=== PATIENT | male | born 1990 | race African-American/Black ===

== ENCOUNTER 2017-03-24 05:29 | Day surgery (SDC) | payer BC ==
[~2017-03-24] VITALS: Ht 162.6 cm; Wt 58.1 kg
[2017-03-24] MEDS: LACTATED RINGERS 1,000 ML IV SCH ×2 (06:22→06:44)
[2017-03-24 06:40] LABS: BASOPHILS % 0.9 % (0.0-2.0); HEMATOCRIT. 40.6 % (42.0-52.0); HEMOGLOBIN. 14.1 g/dL (14.0-18.0); LYMPHOCYTES % 33.6 % (20.0-50.0); MEAN CORPUSCULAR HEMOGLOBIN 31.7 pg (28.0-32.0); MEAN CORPUSCULAR HGB CONC 34.6 g/dL (31.0-37.0); MEAN CORPUSCULAR VOLUME 91.5 fL (80.0-94.0); MEAN PLATELET VOLUME 9.3 fl (7.4-10.4); MONOCYTES % 9.9 % (2.0-8.0); NEUTROPHILS % 51.6 % (40.0-76.0); PLATELET 167 x1000/uL (130-400); RED BLOOD CELL COUNT 4.43 mill/uL (4.7-6.1); RED CELL DISTRIBUTION WIDTH 14.2 % (11.6-14.6); WHITE BLOOD COUNT 5.3 x1000/uL (4.5-11.0)
[2017-03-24 06:50] LABS: ANION GAP 13; CALCIUM 8.6 mg/dL (8.5-10.1); CARBON DIOXIDE 27 mEq/L (21-32); CHLORIDE 106 mEq/L (98-107); INDEX HEMOLYSI 1 (1-3); INDEX ICTERIC 1 (1-4); INDEX LIPEMIC 1 (1-3); UREA NITROGEN BLOOD 19 mg/dL (7-21); eGFR > 60 mL/min (>60)
[2017-03-24 06:55] LABS: CLARITY URINE CLEAR (CLEAR); COLOR URINE YELLOW (YELLOW); GLUCOSE URINE NEGATIVE (NEGATIVE); KETONES URINE NEGATIVE (NEGATIVE); LEUKOCYTE ESTERASE URINE NEGATIVE (NEGATIVE); NITRITE URINE NEGATIVE (NEGATIVE); OCCULT BLOOD URINE TRACE (NEGATIVE); PH URINE 5.5 (4.5-8.0); PROTEIN URINE 2+ (NEGATIVE); SPECIFIC GRAVITY URINE 1.026 (1.005-1.030)
[2017-03-24] MEDS ORDERED: BACITRACIN ZINC 15GM TUBE TOP ONE (07:05)
[2017-03-24] MEDS ORDERED: NORMAL SALINE 0.9% 10 ML SYR ONE (07:05)
[2017-03-24] MEDS ORDERED: BUPIVACAINE HCL/PF 0.25% (2.5MG/ML) 10ML ONE (07:05)
[2017-03-24] MEDS ORDERED: BACITRACIN 50,000 UNITS/VIAL ONE (07:05)
[2017-03-24] MEDS ORDERED: CEFAZOLIN SODIUM 1000MG/VIAL ONE ×2 (07:30→07:43)
[2017-03-24 07:38] LABS: SQUAMOUS EPITHELIAL CELL URINE NONE SEEN /lpf (RARE/1+); WBC URINE NONE SEEN /hpf (0-2)
[2017-03-24 07:39] LABS: BACTERIA URINE TRACE
[2017-03-24] MEDS ORDERED: PROPOFOL 200MG/20ML VIAL IV ONE (07:43)
[2017-03-24] MEDS ORDERED: DEXAMETHASONE 4MG/ML 1ML VIAL ONE (07:45)
[2017-03-24] MEDS ORDERED: ONDANSETRON HCL 4MG/2ML VIAL ONE (07:46)
[2017-03-24] MEDS ORDERED: FENTANYL CITRATE/PF 50MCG/ML 2ML VIAL IV PRN (08:30)
[2017-03-28] MEDS ORDERED: MIDAZOLAM HCL 2 MG/2 ML VIAL ONE (13:14)
[2017-03-28] MEDS ORDERED: FENTANYL CITRATE/PF 50MCG/ML 2ML VIAL ONE (13:15)
[2017-03-28] MEDS ORDERED: LIDOCAINE HCL 1% 20ML VIAL (Pyxis) INJ ONE (13:18)
[2017-03-28] MEDS ORDERED: PROPOFOL 200MG/20ML VIAL IV ONE (13:18)
[2017-03-28] MEDS ORDERED: ONDANSETRON HCL 4MG/2ML VIAL ONE (13:30)
== END 2017-03-24 11:30 | disposition home or self-care (01) ==
LOC: OR 05:29
PROVIDERS: ATTEND Urology
DX: N47.1 Phimosis (principal)
CPT/HCPCS: 36415; 54161; 80048; 81001; 85025; A4216; J0690; J1100; J3490; J7030; J7120; J2250; J2405; J2704; J3010